=== PATIENT | female | born 1970 | race Caucasian/White ===

== ENCOUNTER 2021-04-04 16:55 | Emergency (ER) | payer MEDICAID ==
[~2021-04-04] VITALS: Ht 162.6 cm; Wt 70.5 kg
[~2021-04-04 16:55] MED LIST: ESCI10TA PO; HYDR-4353 PO; HYDR-4383 PO; LEVO125T8 PO; METH-360 PO; ZOLP10TA PO
[2021-04-04 17:13] VITALS: BP 123/95
== END 2021-04-04 17:33 | disposition home or self-care (01) ==
LOC: ER 16:56
DX: U07.1 COVID-19 (principal); J06.9 Acute upper respiratory infection, unspecified; R63.0 Anorexia; R11.0 Nausea; R50.9 Fever, unspecified; R51.9 Headache, unspecified; R05.9 Cough, unspecified; E78.00 Pure hypercholesterolemia, unspecified; I10 Essential (primary) hypertension; E03.9 Hypothyroidism, unspecified; G89.29 Other chronic pain; F31.9 Bipolar disorder, unspecified; Z87.442 Personal history of urinary calculi; Z90.710 Acquired absence of both cervix and uterus; Z98.890 Other specified postprocedural states; Z88.5 Allergy status to narcotic agent; Z88.1 Allergy status to other antibiotic agents; Z88.8 Allergy status to other drugs, medicaments and biological substances; Z79.899 Other long term (current) drug therapy
CPT/HCPCS: 36415; 99283; U0003; U0005

== ENCOUNTER 2021-05-23 20:36 | Inpatient (IN) | payer MEDICAID ==
[~2021-05-23] VITALS: Ht 162.6 cm; Wt 70.9 kg
[2021-05-23] MEDS ORDERED: ketorolac trometh. 30mg/ml inj. IV ONE (21:30)
[2021-05-23 21:33] LABS: CLARITY,URINE SLIGHTLY CLOUDY (Clear); COLOR,URINE YELLOW (Yellow); GLUCOSE, URINE NEGATIVE (Neg); KETONES,URINE TRACE mg/dl (Neg); LEUKOCYTE ESTERASE ,URINE NEGATIVE (Neg); NITRITES, URINE NEGATIVE (Neg); OCCULT BLOOD,URINE MODERATE (Neg); PROTEIN,URINE TRACE mg/dl (Neg)
[2021-05-23 21:39] LABS: BASOPHILS # (AUTO) 0.1 X10'3 (0-0.2); BASOPHILS % (AUTO) 0.9 % (0-1); EOSINOPHILS # (AUTO) 0.1 X10'3 (0-0.9); EOSINOPHILS % (AUTO) 2.2 % (0-6); HEMATOCRIT 39.3 % (35.0-45.0); HEMOGLOBIN 13.6 g/dl (12.0-16.0); LYMPHOCYTES # (AUTO) 2.1 X10'3 (1.1-4.8); LYMPHOCYTES % (AUTO) 31.6 % (21-51); MEAN CORPUSCULAR HEMOGLOBIN 32.8 PG (27.0-31.0); MEAN CORPUSCULAR HGB CONC 34.5 g/dL (33.0-36.5); MEAN PLATELET VOLUME 7.1 FL (7.4-10.4); MONOCYTES # (AUTO) 0.7 X10'3 (0-0.9); MONOCYTES % (AUTO) 10.6 % (2-12); NEUTROPHILS # (AUTO) 3.7 X10'3 (1.8-7.7); NEUTROPHILS % (AUTO) 54.7 % (42-75); PLATELET COUNT 376 X10'3 (140-440); RED BLOOD COUNT 4.14 X10'6 (4.20-5.60); RED CELL DISTRIBUTION WIDTH 14.7 % (11.5-14.5); WHITE BLOOD COUNT 6.8 X10'3 (4.5-11.0)
[2021-05-23] MEDS ORDERED: diphenhydrAMINE 50 mg/ml inj IV ONE (21:40)
[2021-05-23] MEDS ORDERED: diphenhydrAMINE 50 mg/ml inj ONE (21:44)
[2021-05-23 21:46] LABS: ALANINE AMINOTRANSFERASE 23 U/L (12-78); ALBUMIN 4.5 G/DL (3.4-5.0); ALBUMIN/GLOBULIN RATIO 1.4 (1.1-1.5); ALKALINE PHOSPHATASE 60 IU/L (46-116); ANION GAP 15 (8-16); ASPARTATE AMINO TRANSFERASE 14 U/L (10-37); BILIRUBIN,TOTAL 0.5 MG/DL (0.1-1.0); BLOOD UREA NITROGEN 13 MG/DL (7-18); BUN/CREATININE RATIO 13.3 (6.6-38.0); CHLORIDE 105 MMOL/L (99-107); CREATININE 0.98 MG/DL (0.40-0.90); GLUCOSE 103 MG/DL (70-104); POTASSIUM 3.6 MMOL/L (3.5-5.1); SODIUM 141 MMOL/L (135-145); TOTAL CARBON DIOXIDE 21.4 MMOL/L (24-32); TOTAL PROTEIN 7.8 G/DL (6.4-8.2); eGFR 60 ML/MIN
[2021-05-23 21:55] LABS: UA COLLECTION TYPE CLN CATCH MIDSTREAM
[2021-05-23 21:57] LABS: WBC,URINE 0-4 /HPF (0-4)
[2021-05-23 21:58] LABS: BACTERIA,URINE FEW /HPF (Neg); MUCUS STRANDS FEW /LPF (Neg); SQUAMOUS EPITHELIAL CELL,UR FEW /LPF (FEW)
[2021-05-23] MEDS ORDERED: normal saline 1000ML IV soln IVB ONE (22:00)
[2021-05-23] MEDS ORDERED: ondansetron/PF 4mg/2ml inj IV ONE (22:00)
[2021-05-23] MEDS: HYDROmorphone inj. 0.5 MG/0.5 ML DISP.SYRIN IV PRN (22:50)
[2021-05-24] VITALS (17 sets, daily range): BP systolic 109–153; BP diastolic 70–97
[2021-05-24] MEDS ORDERED: piperacillin/tazo 3.375gm/50ml 50 ML IV ONE (00:50)
[2021-05-24] MEDS ORDERED: HYDROmorphone 1 mg/ml syringe IV ONE (00:50)
[2021-05-24] MEDS: HYDROmorphone inj. 0.5 MG/0.5 ML DISP.SYRIN IV PRN (01:01)
[2021-05-24] MEDS ORDERED: CADD PCA waste documentation MC PRN (01:10)
[2021-05-24] MEDS ORDERED: acetaminophen 325mg tablet PO PRN (01:10)
[2021-05-24] MEDS ORDERED: HYDROmorphone/PF 0.2 MG/ML SYRINGE IV PRN (01:10)
[2021-05-24] MEDS ORDERED: mag hydrox/Alum hydrox/simeth 30ml oral suspension PO PRN (01:10)
[2021-05-24] MEDS ORDERED: magnesium hydroxide 30ml (MOM) UD suspension PO PRN (01:10)
[2021-05-24] MEDS ORDERED: naloxone 0.4 mg/ml inj IV PRN (01:10)
[2021-05-24] MEDS ORDERED: HYDROmorphone inj. 0.5 MG/0.5 ML DISP.SYRIN IV PRN (01:10)
[2021-05-24] MEDS ORDERED: ondansetron/PF 4mg/2ml inj IV PRN ×3 (01:10→19:35)
[2021-05-24] MEDS: normal saline 1000ml 1,000 ML IV SCH ×4 (01:18→21:14)
[2021-05-24] MEDS: HYDROmorph./NS 0.2 mg/ml CADD 50 ML IV SCH ×9 (02:27→19:00)
--- NOTE | 2021-05-24 06:27 | NUR ---
Patient in room [facility] 360. I have received report from AMPARO yLnn and had the opportunity to ask questions and assume patient care.
[2021-05-24] MEDS ORDERED: levoTHYROXINE 100mcg tablet PO SCH ×2 (07:00→12:31)
[2021-05-24] MEDS: piperacillin/tazo 3.375gm/50ml 50 ML IV SCH ×2 (07:43→16:00)
[2021-05-24] MEDS ORDERED: ESCITALOPRAM OXALATE 5 MG TABLET PO SCH (08:00)
[2021-05-24] MEDS: docusate sod 100mg capsule PO SCH ×2 (08:00→20:00)
[2021-05-24 08:35] LABS: APTT 32 SECONDS (22-32)
[2021-05-24] MEDS ORDERED: proCHLORperazine 10 MG/2 ml inj IV PRN (09:35)
[2021-05-24] MEDS ORDERED: LORazepam 2 mg/ml vial IV PRN (10:25)
--- NOTE | 2021-05-24 11:12 | NUR ---
Pt found to have low O2 sats during routine VS. Pt in no distress. When questioned, pt reports she was DC last May to the [place] with O2. [facility] and unable to take her O2. Pt has HX of COPD and noncompliance. Pt placed on 3 lpm nc with sats increasing to 89%. RT paged for tx. Addendum: 05/24/21 at 1119 by Madina Nuno RN Disregard above note, written on wrong patient.
[2021-05-24] MEDS: LORazepam 0.5 MG tablet PO PRN ×2 (12:18→21:48)
[2021-05-24] MEDS ORDERED: LEVO100T PO (12:39)
--- NOTE | 2021-05-24 15:39 | NUR ---
To Sx via bed with Cadd and IV Zosyn, Report called to markus Darby RN
[2021-05-24] MEDS ORDERED: LIDOcaine 1% (10mg/ml)w/preservative inj. 20ml MDV ONE (15:58)
[2021-05-24] MEDS ORDERED: BUPIVAcaine 0.5% inj/PF 30 ML ONE (15:58)
[2021-05-24] MEDS ORDERED: iohexol 300 MG/1 ML 50ml polymer ONE (16:05)
[2021-05-24] MEDS ORDERED: midazolam 1 mg/ML 2ml injection ONE (17:24)
[2021-05-24] MEDS ORDERED: FENTANYL CITRATE/PF 50 MCG/1 ML VIAL ONE (17:24)
[2021-05-24] MEDS ORDERED: ondansetron/PF 4mg/2ml inj ONE (18:07)
[2021-05-24] MEDS ORDERED: neostigmine methylsulfate 1 MG/ML 10ml vial ONE (18:07)
[2021-05-24] MEDS ORDERED: propofol inj 20 ML IV ONE (18:07)
[2021-05-24] MEDS ORDERED: rocuronium 10mg/ml inj IV ONE (18:07)
[2021-05-24] MEDS ORDERED: LIDOcaine 2% (20mg/ml) 5ml vial ONE (18:07)
[2021-05-24] MEDS ORDERED: dexamethasone sod phosphate 4mg/ml inj. ONE (18:07)
[2021-05-24] MEDS ORDERED: glycopyrrolate 0.2mg/ml inj ONE (18:07)
[2021-05-24] MEDS ORDERED: FLO0.4C PO (18:11)
[2021-05-24] MEDS ORDERED: HYDROcodone/acetaminophen 5mg/325mg tablet PO PRN (18:40)
--- NOTE | 2021-05-24 18:51 | NUR ---
Problems reprioritized. Patient report given, questions answered & plan of care reviewed with AMPARO Vang.
[2021-05-24] MEDS ORDERED: CIPR-429 PO (19:23)
--- NOTE | 2021-05-24 19:25 | NUR ---
PT ARRIVED TO RR VIA BED, AWAKE, VSS, MILD PAIN IN ABD, BANDAIDS X 3 TO ABD-CDI, PIV 20G TO R A/C, SCDS ON, PT EAGER TO GO HOME, OK WITH BOTH SURGEONS-WILL CONVEY DESIRES TO NURSING/HOSPITALIST ON FLOOR TO PUSH IN THAT DIRECTION.
[2021-05-24] MEDS ORDERED: ringers solution, lacted 1,000 ML IV SCH (19:35)
[2021-05-24] MEDS ORDERED: fentaNYL/PF 50MCG/1 ML 2ML syringe IV PRN ×2 (19:35)
[2021-05-24] MEDS ORDERED: meperidine/PF 25mg/ml syringe IV PRN ×2 (19:35)
[2021-05-24] MEDS ORDERED: HYDR-3965 PO (19:40)
--- NOTE | 2021-05-24 19:53 | NUR ---
PT C/O NAUSEA-NO EMESIS, GIVEN ZOFRAN IVP, UP TO BSC TO ATTEMPT TO VOID, VSS.
--- NOTE | 2021-05-24 20:26 | NUR ---
PT ABLE TO VOID, BACK TO BED, NAUSEA BETTER, VSS, GIVEN 25MG DEMEROL FOR PAIN-TOLERATING WELL, REPORT CALLED TO OMA AGUILAR ON 3SURGICAL-ALL QUESTIONS ANSWERED, EXPRESSED TO RN PT'S DESIRE TO GO HOME TONIGHT AND SURGEONS APPROVAL TO D/C WELL.
--- NOTE | 2021-05-24 20:35 | NUR ---
PT TAKEN BACK TO ROOM 360A, BED LOW AND LOCKED, HEAD OF SCIENCE IN ROOM TO ACCEPT PT, HOOKED UP TO MONITORS.
--- NOTE | 2021-05-24 21:42 | NUR ---
SPOKE TO DR DRAKE REGARDING PT SP LAP [facility]EWELS [facility]. INFORMED HIM PT WANTED TO BE DISCHARGED BUT AGREED TO STAY IN HOSPITAL OVERNIGHT. INFORMED DR RIVERA OPT HAS A EXCAVATOR OPERATOR BUT NOT IN USE . ASKED DR DRAKE IF EXCAVATOR OPERATOR SHOULD BE RESTARTED . DR DRAKE STATED IF [place]CO IS NOT EFFECTIVE , START EXCAVATOR OPERATOR .
[2021-05-24] MEDS: HYDROcodone/acetaminophen 10/325mg tab PO PRN (22:14)
[2021-05-25] VITALS: BP 139/91
[2021-05-25] MEDS: piperacillin/tazo 3.375gm/50ml 50 ML IV SCH ×2 (00:01→07:56)
[2021-05-25 00:15] VITALS: BP 115/73
[2021-05-25] MEDS: HYDROmorph./NS 0.2 mg/ml CADD 50 ML IV SCH ×5 (01:00→09:00)
--- NOTE | 2021-05-25 01:00 | NUR ---
LATE ENTRY PT RETURNED FROM PACU WITH NO CADD PUMP IN USE. CADD PUMP WAS NOT CONNECTED TO PT PT HAD 18/20 ATTEMPTS PREVIOUSLY 28.8 ML LEFT IN SYRINGE PT USED 3.78 ML PER PUMP . OBSERVED WASTE AND PUMP SETTINGS WITNESSED BY FELICIANO AGUILAR
[2021-05-25] MEDS: HYDROcodone/acetaminophen 10/325mg tab PO PRN ×4 (03:23→11:56)
[2021-05-25 03:41] VITALS: BP 128/87
[2021-05-25] MEDS ORDERED: ringers solution, lacted 1,000 ML IV SCH (05:00)
[2021-05-25 06:23] LABS: BASOPHILS % (AUTO) 0.1 % (0-1); EOSINOPHILS % (AUTO) 0 % (0-6); HEMATOCRIT 34.2 % (35.0-45.0); HEMOGLOBIN 11.7 g/dl (12.0-16.0); LYMPHOCYTES # (AUTO) 0.8 X10'3 (1.1-4.8); MEAN CORPUSCULAR HGB CONC 34.3 g/dL (33.0-36.5); MEAN CORPUSCULAR VOLUME 96.1 FL (78-98); MONOCYTES # (AUTO) 0.6 X10'3 (0-0.9); MONOCYTES % (AUTO) 5.2 % (2-12); NEUTROPHILS # (AUTO) 9.4 X10'3 (1.8-7.7); NEUTROPHILS % (AUTO) 87.7 % (42-75); PLATELET COUNT 302 X10'3 (140-440); RED BLOOD COUNT 3.56 X10'6 (4.20-5.60); RED CELL DISTRIBUTION WIDTH 14.3 % (11.5-14.5); WHITE BLOOD COUNT 10.7 X10'3 (4.5-11.0)
[2021-05-25 06:36] LABS: ALANINE AMINOTRANSFERASE 20 U/L (12-78); ALBUMIN 3.4 G/DL (3.4-5.0); ALBUMIN/GLOBULIN RATIO 1.3 (1.1-1.5); ALKALINE PHOSPHATASE 45 IU/L (46-116); ANION GAP 11 (8-16); ASPARTATE AMINO TRANSFERASE 13 U/L (10-37); BILIRUBIN,TOTAL 0.4 MG/DL (0.1-1.0); BLOOD UREA NITROGEN 6 MG/DL (7-18); BUN/CREATININE RATIO 8.1 (6.6-38.0); CALCIUM 7.7 MG/DL (8.5-10.1); CHLORIDE 109 MMOL/L (99-107); CREATININE 0.74 MG/DL (0.40-0.90); GLUCOSE 114 MG/DL (70-104); POTASSIUM 3.9 MMOL/L (3.5-5.1); SODIUM 142 MMOL/L (135-145); TOTAL CARBON DIOXIDE 21.9 MMOL/L (24-32); TOTAL PROTEIN 6.1 G/DL (6.4-8.2); eGFR 83 ML/MIN
[2021-05-25 07:00] VITALS: BP 122/69
[2021-05-25] MEDS: docusate sod 100mg capsule PO SCH (07:55)
[2021-05-25 11:00] VITALS: BP 137/90
--- NOTE | 2021-05-25 12:30 | NUR ---
Patient dischaged to home, discharge instruction given, good understanding verbalized, hard paper script for [place] given. PIV removed, pressure dressing applied. all belongings packed and took home with.
== END 2021-05-25 12:39 | disposition home or self-care (01) | DRG 234 ==
LOC: ER 20:36 → ED HOLD 05-24 01:09 → SUR 3N 05-24 01:46
PROVIDERS: ADMIT Internal Medicine; ATTEND Family Medicine
PROC: 0TC68ZZ Extirpation of Matter from Right Ureter, Via Natural or Artificial Opening Endoscopic (ICD-10-PCS; 2021-05-24)
PROC: 0T768DZ Dilation of Right Ureter with Intraluminal Device, Via Natural or Artificial Opening Endoscopic (ICD-10-PCS; 2021-05-24)
PROC: BT1D1ZZ Fluoroscopy of Right Kidney, Ureter and Bladder using Low Osmolar Contrast (ICD-10-PCS; 2021-05-24)
PROC: 0DTJ4ZZ Resection of Appendix, Percutaneous Endoscopic Approach (ICD-10-PCS; principal; 2021-05-24 17:26)
PROC: 8E0W4CZ Robotic Assisted Procedure of Trunk Region, Percutaneous Endoscopic Approach (ICD-10-PCS; 2021-05-24 17:26)
DX: K35.30 Acute appendicitis with localized peritonitis, without perforation or gangrene (principal); E03.9 Hypothyroidism, unspecified; Z20.822 Contact with and (suspected) exposure to COVID-19; E78.00 Pure hypercholesterolemia, unspecified; I10 Essential (primary) hypertension; N13.2 Hydronephrosis with renal and ureteral calculous obstruction; F32.A Depression, unspecified; F41.9 Anxiety disorder, unspecified; G89.29 Other chronic pain; M54.9 Dorsalgia, unspecified; Z87.442 Personal history of urinary calculi; Z90.710 Acquired absence of both cervix and uterus; Z98.891 History of uterine scar from previous surgery; Z88.8 Allergy status to other drugs, medicaments and biological substances; Z88.5 Allergy status to narcotic agent; Z79.899 Other long term (current) drug therapy
CPT/HCPCS: 36415; 71045; 74176; 76000; 80053; 81001; 82948; 85025; 85610; 85730; 87081; 87635; 93005; 96365; 96375; 99285; A4215; A4618; C1758; C1769; C2617; C9803; G0378; J0780; J1100; J1170; J1200; J1885; J2175; J2250; J2405; J2543; J2704; J2710; J3010; J3490; J7030; J7120; Q9967; S0020

== ENCOUNTER 2021-06-03 18:45 | Emergency (ER) | payer MEDICAID ==
[~2021-06-03] VITALS: Ht 162.6 cm; Wt 70.0 kg
[~2021-06-03 18:45] MED LIST changes: -ESCI10TA PO; +FLO0.4C PO; +HYDR-3965 PO; -HYDR-4353 PO; -HYDR-4383 PO; +LEVO100T PO; -LEVO125T8 PO; -METH-360 PO; -ZOLP10TA PO
[2021-06-03 19:21] LABS: BASOPHILS # (AUTO) 0.1 X10'3 (0-0.2); BASOPHILS % (AUTO) 0.8 % (0-1); EOSINOPHILS # (AUTO) 0.2 X10'3 (0-0.9); EOSINOPHILS % (AUTO) 3.6 % (0-6); HEMATOCRIT 37.3 % (35.0-45.0); HEMOGLOBIN 12.8 g/dl (12.0-16.0); LYMPHOCYTES # (AUTO) 1.8 X10'3 (1.1-4.8); LYMPHOCYTES % (AUTO) 27.1 % (21-51); MEAN CORPUSCULAR HEMOGLOBIN 33.8 PG (27.0-31.0); MEAN CORPUSCULAR HGB CONC 34.3 g/dL (33.0-36.5); MEAN CORPUSCULAR VOLUME 98.6 FL (78-98); MEAN PLATELET VOLUME 6.5 FL (7.4-10.4); MONOCYTES # (AUTO) 0.6 X10'3 (0-0.9); MONOCYTES % (AUTO) 9.4 % (2-12); NEUTROPHILS # (AUTO) 3.8 X10'3 (1.8-7.7); NEUTROPHILS % (AUTO) 59.1 % (42-75); PLATELET COUNT 368 X10'3 (140-440); RED BLOOD COUNT 3.79 X10'6 (4.20-5.60); RED CELL DISTRIBUTION WIDTH 14.7 % (11.5-14.5); WHITE BLOOD COUNT 6.5 X10'3 (4.5-11.0)
[2021-06-03 19:37] LABS: ALANINE AMINOTRANSFERASE 38 U/L (12-78); ALBUMIN 4.4 G/DL (3.4-5.0); ALBUMIN/GLOBULIN RATIO 1.2 (1.1-1.5); ALKALINE PHOSPHATASE 83 IU/L (46-116); ANION GAP 13 (8-16); ASPARTATE AMINO TRANSFERASE 15 U/L (10-37); BILIRUBIN,TOTAL 0.5 MG/DL (0.1-1.0); BLOOD UREA NITROGEN 20 MG/DL (7-18); CALCIUM 9.3 MG/DL (8.5-10.1); CHLORIDE 103 MMOL/L (99-107); CREATININE 0.91 MG/DL (0.40-0.90); GLUCOSE 103 MG/DL (70-104); LIPASE 124 U/L (73-393); POTASSIUM 3.8 MMOL/L (3.5-5.1); SODIUM 138 MMOL/L (135-145); TOTAL CARBON DIOXIDE 22.3 MMOL/L (24-32); eGFR 65 ML/MIN
[2021-06-03 19:57] LABS: URINE HCG NEGATIVE (NEG)
[2021-06-03 20:39] LABS: COLOR,URINE YELLOW (Yellow); GLUCOSE, URINE NEGATIVE (Neg); KETONES,URINE TRACE mg/dl (Neg); LEUKOCYTE ESTERASE ,URINE TRACE (Neg); NITRITES, URINE NEGATIVE (Neg); OCCULT BLOOD,URINE LARGE (Neg); PH,URINE 5.5 (4.8-8.0); PROTEIN,URINE 100 mg/dl (Neg); UROBILINOGEN,URINE 0.2 E.U/dL (0.2-1.0)
[2021-06-03 20:40] LABS: CLARITY,URINE CLOUDY (Clear); UA COLLECTION TYPE CLN CATCH MIDSTREAM
[2021-06-03 20:41] LABS: BACTERIA,URINE FEW /HPF (Neg); RBC,URINE TNTC /HPF (0-2); SQUAMOUS EPITHELIAL CELL,UR FEW /LPF (FEW); WBC,URINE 0-4 /HPF (0-4)
[2021-06-03] MEDS ORDERED: ondansetron/PF 4mg/2ml inj IV ONE (23:15)
[2021-06-03] MEDS ORDERED: iohexol 300mg/ml 100ml inj. ONE (23:15)
[2021-06-03] MEDS ORDERED: HYDROmorphone 1 mg/ml syringe IV ONE (23:45)
[2021-06-04] MEDS ORDERED: HYDROmorphone 1 mg/ml syringe IV ONE (01:40)
[2021-06-04] MEDS ORDERED: LORA10TA7 PO (02:06)
[2021-06-04] MEDS ORDERED: sulfamethoxazole/trimethoprim DS (800/160mg) tablet PO ONE (02:25)
[2021-06-04] MEDS ORDERED: HYDR-3965 PO (02:27)
[2021-06-04] MEDS ORDERED: SULF1TAB49 PO (02:27)
[2021-06-04 04:13] VITALS: BP 142/93
== END 2021-06-04 04:20 | disposition home or self-care (01) ==
LOC: ER 18:45
DX: N39.0 Urinary tract infection, site not specified (principal); R10.84 Generalized abdominal pain; R31.9 Hematuria, unspecified; R11.0 Nausea; R30.0 Dysuria; E78.00 Pure hypercholesterolemia, unspecified; I10 Essential (primary) hypertension; E03.9 Hypothyroidism, unspecified; G89.29 Other chronic pain; Z87.442 Personal history of urinary calculi; Z98.890 Other specified postprocedural states; Z90.49 Acquired absence of other specified parts of digestive tract; Z98.891 History of uterine scar from previous surgery; Z90.710 Acquired absence of both cervix and uterus; Z88.5 Allergy status to narcotic agent; Z88.8 Allergy status to other drugs, medicaments and biological substances; Z88.1 Allergy status to other antibiotic agents; Z79.899 Other long term (current) drug therapy
CPT/HCPCS: 36415; 74177; 80053; 81001; 81025; 83690; 85025; 87088; 96374; 96375; 96376; 99285; J1170; J2405; Q9967

== ENCOUNTER 2022-07-25 09:30 | Emergency (ER) | payer MEDICAID ==
[~2022-07-25] VITALS: Ht 162.6 cm; Wt 110.0 kg
[~2022-07-25 09:30] MED LIST changes: -FLO0.4C PO; -HYDR-3965 PO; +LORA10TA7 PO
[2022-07-25 09:46] LABS: URINE HCG NEGATIVE (NEG)
[2022-07-25 09:54] LABS: BASOPHILS # (AUTO) 0.1 X10'3 (0-0.2); BASOPHILS % (AUTO) 1.3 % (0-1); EOSINOPHILS # (AUTO) 0.2 X10'3 (0-0.9); HEMATOCRIT 38.8 % (35.0-45.0); HEMOGLOBIN 13.3 g/dl (12.0-16.0); LYMPHOCYTES # (AUTO) 1.2 X10'3 (1.1-4.8); LYMPHOCYTES % (AUTO) 28.7 % (21-51); MEAN CORPUSCULAR HEMOGLOBIN 33.1 PG (27.0-31.0); MEAN CORPUSCULAR HGB CONC 34.4 g/dL (33.0-36.5); MEAN CORPUSCULAR VOLUME 96.3 FL (78-98); MEAN PLATELET VOLUME 7.3 FL (7.4-10.4); MONOCYTES # (AUTO) 0.4 X10'3 (0-0.9); MONOCYTES % (AUTO) 9.5 % (2-12); NEUTROPHILS # (AUTO) 2.2 X10'3 (1.8-7.7); NEUTROPHILS % (AUTO) 54.5 % (42-75); PLATELET COUNT 268 X10'3 (140-440); RED BLOOD COUNT 4.03 X10'6 (4.20-5.60); RED CELL DISTRIBUTION WIDTH 13.8 % (11.5-14.5); WHITE BLOOD COUNT 4.1 X10'3 (4.5-11.0)
[2022-07-25] MEDS ORDERED: ondansetron 4mg rapidly disintigrating tab PO ONE (10:05)
[2022-07-25] MEDS ORDERED: normal saline 1000ml 1,000 ML IV ONE (10:05)
[2022-07-25] MEDS ORDERED: HYDROcodone/acetaminophen 10/325mg tab PO ONE (10:05)
[2022-07-25 10:09] LABS: CLARITY,URINE CLOUDY (Clear); COLOR,URINE YELLOW (Yellow); GLUCOSE, URINE NEGATIVE (Neg); KETONES,URINE NEGATIVE (Neg); LEUKOCYTE ESTERASE ,URINE NEGATIVE (Neg); NITRITES, URINE NEGATIVE (Neg); OCCULT BLOOD,URINE NEGATIVE (Neg); PROTEIN,URINE NEGATIVE (Neg); UROBILINOGEN,URINE 0.2 E.U/dL (0.2-1.0)
[2022-07-25 10:14] LABS: ALANINE AMINOTRANSFERASE 18 U/L (12-78); ALBUMIN 3.8 G/DL (3.4-5.0); ALBUMIN/GLOBULIN RATIO 1.3 (1.1-1.5); ALKALINE PHOSPHATASE 85 IU/L (46-116); ASPARTATE AMINO TRANSFERASE 9 U/L (10-37); BILIRUBIN,TOTAL 0.2 MG/DL (0.1-1.0); BLOOD UREA NITROGEN 17 MG/DL (7-18); BUN/CREATININE RATIO 18.3 (10.0-20.0); CALCIUM 8.7 MG/DL (8.5-10.1); CHLORIDE 107 MMOL/L (99-107); CREATININE 0.93 MG/DL (0.40-0.90); GLUCOSE 126 MG/DL (70-104); LIPASE 91 U/L (73-393); POTASSIUM 3.6 MMOL/L (3.5-5.1); TOTAL CARBON DIOXIDE 24.3 MMOL/L (24-32); TOTAL PROTEIN 6.7 G/DL (6.4-8.2); eGFR 63 ML/MIN
[2022-07-25] MEDS ORDERED: ibuprofen tablet 400 MG TABLET PO ONE (10:20)
[2022-07-25 10:32] LABS: UA COLLECTION TYPE CLN CATCH MIDSTREAM
[2022-07-25 10:33] LABS: BACTERIA,URINE FEW /HPF (Neg); HYALINE CASTS 0-3 /LPF (NEGATIVE); MUCUS STRANDS MODERATE /LPF (Neg); RBC,URINE 0-2 /HPF (0-2); SQUAMOUS EPITHELIAL CELL,UR MANY /LPF (FEW); TRANSITIONAL EPI CELLS,URINE FEW /HPF; WBC,URINE 0-4 /HPF (0-4)
[2022-07-25 10:37] LABS: ANION GAP 8 (8-16); SODIUM 139 MMOL/L (135-145)
[2022-07-25] MEDS ORDERED: OXYC-145 PO (11:26)
[2022-07-25] MEDS ORDERED: ONDA4TAB12 PO (11:26)
[2022-07-25 11:43] VITALS: BP 118/80
== END 2022-07-25 11:46 | disposition home or self-care (01) ==
LOC: ER 09:31
DX: N20.0 Calculus of kidney (principal); E78.00 Pure hypercholesterolemia, unspecified; I10 Essential (primary) hypertension; E03.9 Hypothyroidism, unspecified; G89.29 Other chronic pain; F31.9 Bipolar disorder, unspecified; Z90.49 Acquired absence of other specified parts of digestive tract; Z90.710 Acquired absence of both cervix and uterus; Z98.890 Other specified postprocedural states; Z88.5 Allergy status to narcotic agent; Z88.8 Allergy status to other drugs, medicaments and biological substances; Z79.899 Other long term (current) drug therapy
CPT/HCPCS: 36415; 76770; 80053; 81001; 81025; 83690; 85025; 96360; 99284; J7030

== ENCOUNTER 2022-07-31 05:37 | Emergency (ER) | payer MEDICAID ==
[~2022-07-31] VITALS: Ht 162.6 cm; Wt 79.5 kg
[~2022-07-31 05:37] MED LIST changes: +ONDA4TAB12 PO; +OXYC-145 PO
[2022-07-31 06:03] LABS: URINE HCG NEGATIVE (NEG)
[2022-07-31 06:06] LABS: CLARITY,URINE SLIGHTLY CLOUDY (Clear); COLOR,URINE YELLOW (Yellow); GLUCOSE, URINE NEGATIVE (Neg); KETONES,URINE NEGATIVE (Neg); LEUKOCYTE ESTERASE ,URINE NEGATIVE (Neg); NITRITES, URINE NEGATIVE (Neg); OCCULT BLOOD,URINE NEGATIVE (Neg); PROTEIN,URINE NEGATIVE (Neg); UROBILINOGEN,URINE 0.2 E.U/dL (0.2-1.0)
[2022-07-31 06:11] LABS: UA COLLECTION TYPE CLN CATCH MIDSTREAM
[2022-07-31 06:12] LABS: BACTERIA,URINE FEW /HPF (Neg); MUCUS STRANDS FEW /LPF (Neg); RBC,URINE NONE SEEN /HPF (0-2); SQUAMOUS EPITHELIAL CELL,UR MANY /LPF (FEW); WBC,URINE 0-4 /HPF (0-4)
[2022-07-31 06:28] LABS: ALANINE AMINOTRANSFERASE 31 U/L (12-78); ALBUMIN 4.5 G/DL (3.4-5.0); ALBUMIN/GLOBULIN RATIO 1.4 (1.1-1.5); ALKALINE PHOSPHATASE 80 IU/L (46-116); ANION GAP 5 (8-16); ASPARTATE AMINO TRANSFERASE 13 U/L (10-37); BILIRUBIN,TOTAL 0.3 MG/DL (0.1-1.0); BLOOD UREA NITROGEN 13 MG/DL (7-18); BUN/CREATININE RATIO 15.9 (10.0-20.0); CALCIUM 9.6 MG/DL (8.5-10.1); CHLORIDE 103 MMOL/L (99-107); CREATININE 0.82 MG/DL (0.40-0.90); GLUCOSE 108 MG/DL (70-104); LIPASE 67 U/L (73-393); POTASSIUM 3.9 MMOL/L (3.5-5.1); SODIUM 137 MMOL/L (135-145); TOTAL CARBON DIOXIDE 28.6 MMOL/L (24-32); TOTAL PROTEIN 7.8 G/DL (6.4-8.2); eGFR 73 ML/MIN
[2022-07-31 06:36] LABS: BASOPHILS % (AUTO) 0.9 % (0-1); EOSINOPHILS # (AUTO) 0.2 X10'3 (0-0.9); EOSINOPHILS % (AUTO) 3.5 % (0-6); HEMATOCRIT 44.3 % (35.0-45.0); HEMOGLOBIN 14.8 g/dl (12.0-16.0); LYMPHOCYTES # (AUTO) 1.7 X10'3 (1.1-4.8); LYMPHOCYTES % (AUTO) 32.5 % (21-51); MEAN CORPUSCULAR HEMOGLOBIN 32.5 PG (27.0-31.0); MEAN CORPUSCULAR HGB CONC 33.5 g/dL (33.0-36.5); MEAN CORPUSCULAR VOLUME 97.1 FL (78-98); MEAN PLATELET VOLUME 7.3 FL (7.4-10.4); MONOCYTES # (AUTO) 0.4 X10'3 (0-0.9); NEUTROPHILS # (AUTO) 2.8 X10'3 (1.8-7.7); NEUTROPHILS % (AUTO) 55.1 % (42-75); PLATELET COUNT 284 X10'3 (140-440); RED BLOOD COUNT 4.56 X10'6 (4.20-5.60); RED CELL DISTRIBUTION WIDTH 13.4 % (11.5-14.5); WHITE BLOOD COUNT 5.2 X10'3 (4.5-11.0)
--- NOTE | 2022-07-31 07:20 | NUR ---
Patient refusing CT scan of abdomen/pelvis. Patient was crying and states "If they cannot find anything in the scan, I would rather just go home and see my urologist!" I have told the patient that we need to do the CT scan so we can find out whats going on. I gave her a few minutes to think about it. When I came back she still saying she does not want the CT scan done and would like to follow up tomorrow with her urologist or come back to ER if her symptoms worsen. She was also requesting for a work note until sunday this week. I communicated this concern to Dr. Choi.
[2022-07-31] MEDS ORDERED: HYDR-3965 PO (07:23)
[2022-07-31 07:48] VITALS: BP 138/87
== END 2022-07-31 07:53 | disposition home or self-care (01) ==
LOC: ER 05:38
DX: R10.9 Unspecified abdominal pain (principal); E78.00 Pure hypercholesterolemia, unspecified; I10 Essential (primary) hypertension; E03.9 Hypothyroidism, unspecified; Z88.5 Allergy status to narcotic agent; Z88.1 Allergy status to other antibiotic agents; Z90.710 Acquired absence of both cervix and uterus
CPT/HCPCS: 36415; 80053; 81001; 81025; 83690; 85025; 99283

== ENCOUNTER 2022-11-01 05:33 | Emergency (ER) | payer MEDICAID ==
[~2022-11-01] VITALS: Ht 162.6 cm; Wt 72.0 kg
[2022-11-01 07:06] LABS: BASOPHILS % (AUTO) 0.6 % (0-1); EOSINOPHILS # (AUTO) 0.2 X10'3 (0-0.9); EOSINOPHILS % (AUTO) 2.2 % (0-6); HEMATOCRIT 41.2 % (35.0-45.0); HEMOGLOBIN 14.3 g/dl (12.0-16.0); LYMPHOCYTES # (AUTO) 1.4 X10'3 (1.1-4.8); LYMPHOCYTES % (AUTO) 17.7 % (21-51); MEAN CORPUSCULAR HEMOGLOBIN 34.3 PG (27.0-31.0); MEAN CORPUSCULAR HGB CONC 34.7 g/dL (33.0-36.5); MEAN CORPUSCULAR VOLUME 98.8 FL (78-98); MEAN PLATELET VOLUME 7.1 FL (7.4-10.4); MONOCYTES # (AUTO) 0.7 X10'3 (0-0.9); MONOCYTES % (AUTO) 8.8 % (2-12); NEUTROPHILS # (AUTO) 5.4 X10'3 (1.8-7.7); NEUTROPHILS % (AUTO) 70.7 % (42-75); PLATELET COUNT 324 X10'3 (140-440); RED BLOOD COUNT 4.17 X10'6 (4.20-5.60); RED CELL DISTRIBUTION WIDTH 13.4 % (11.5-14.5); WHITE BLOOD COUNT 7.7 X10'3 (4.5-11.0)
[2022-11-01 07:24] LABS: ALANINE AMINOTRANSFERASE 22 U/L (12-78); ALBUMIN 4.1 G/DL (3.4-5.0); ALBUMIN/GLOBULIN RATIO 1.2 (1.1-1.5); ALKALINE PHOSPHATASE 91 IU/L (46-116); ANION GAP 9 (8-16); ASPARTATE AMINO TRANSFERASE 10 U/L (10-37); BILIRUBIN,TOTAL 0.5 MG/DL (0.1-1.0); BLOOD UREA NITROGEN 20 MG/DL (7-18); BUN/CREATININE RATIO 21.7 (10.0-20.0); CALCIUM 9.9 MG/DL (8.5-10.1); CHLORIDE 105 MMOL/L (99-107); CREATININE 0.92 MG/DL (0.40-0.90); GLUCOSE 101 MG/DL (70-104); LIPASE 84 U/L (73-393); POTASSIUM 3.8 MMOL/L (3.5-5.1); SODIUM 141 MMOL/L (135-145); TOTAL CARBON DIOXIDE 27.3 MMOL/L (24-32); TOTAL PROTEIN 7.5 G/DL (6.4-8.2); eCRCL 61 ML/MIN; eGFR 64 ML/MIN
[2022-11-01 07:57] LABS: URINE HCG NEGATIVE (NEG)
[2022-11-01 08:01] LABS: BILIRUBIN,URINE NEGATIVE (Neg); CLARITY,URINE CLEAR (Clear); COLOR,URINE YELLOW (Yellow); GLUCOSE, URINE NEGATIVE (Neg); KETONES,URINE NEGATIVE (Neg); LEUKOCYTE ESTERASE ,URINE NEGATIVE (Neg); NITRITES, URINE NEGATIVE (Neg); OCCULT BLOOD,URINE NEGATIVE (Neg); PH,URINE 5.5 (4.8-8.0); PROTEIN,URINE NEGATIVE (Neg); UROBILINOGEN,URINE 0.2 E.U/dL (0.2-1.0)
[2022-11-01 08:12] LABS: UA COLLECTION TYPE CLN CATCH MIDSTREAM
[2022-11-01] MEDS ORDERED: normal saline 1000ML IV soln IVB ONE (08:20)
[2022-11-01] MEDS ORDERED: meperidine/PF 50mg/ml syringe IV ONE (08:30)
[2022-11-01] MEDS ORDERED: CYCL-1 PO (09:55)
[2022-11-01] MEDS ORDERED: cyclobenzaprine 10mg tablet PO ONE (09:55)
[2022-11-01] MEDS ORDERED: ONDA4TAB12 PO (09:55)
[2022-11-01 10:06] VITALS: BP 156/96; PULSE 49; RESP 18; TEMP 97.7; O2SAT 100
== END 2022-11-01 10:23 | disposition home or self-care (01) ==
LOC: ER 05:34
DX: R10.9 Unspecified abdominal pain (principal); E78.00 Pure hypercholesterolemia, unspecified; I10 Essential (primary) hypertension; E03.9 Hypothyroidism, unspecified; G89.29 Other chronic pain; F31.9 Bipolar disorder, unspecified; Z87.442 Personal history of urinary calculi; Z90.49 Acquired absence of other specified parts of digestive tract; Z98.890 Other specified postprocedural states; Z90.710 Acquired absence of both cervix and uterus; Z88.5 Allergy status to narcotic agent; Z88.8 Allergy status to other drugs, medicaments and biological substances; Z79.899 Other long term (current) drug therapy; Z88.1 Allergy status to other antibiotic agents
CPT/HCPCS: 36415; 74176; 80053; 81003; 81025; 83690; 85025; 96361; 96374; 99285; J2175; J7030

== ENCOUNTER 2022-11-13 02:19 | Inpatient (IN) | payer MEDICAID ==
[~2022-11-13] VITALS: Ht 162.6 cm; Wt 72.7 kg
[~2022-11-13 02:19] MED LIST changes: +CYCL-1 PO
[2022-11-13 04:11] LABS: URINE HCG NEGATIVE (NEG)
[2022-11-13 04:21] LABS: BILIRUBIN,URINE SMALL (Neg); CLARITY,URINE CLOUDY (Clear); COLOR,URINE AMBER (Yellow); GLUCOSE, URINE NEGATIVE (Neg); KETONES,URINE NEGATIVE (Neg); LEUKOCYTE ESTERASE ,URINE NEGATIVE (Neg); NITRITES, URINE NEGATIVE (Neg); OCCULT BLOOD,URINE NEGATIVE (Neg); PH,URINE 8.5 (4.8-8.0); PROTEIN,URINE 30 mg/dl (Neg)
[2022-11-13 04:25] LABS: UA COLLECTION TYPE CLN CATCH MIDSTREAM
[2022-11-13 04:26] LABS: SQUAMOUS EPITHELIAL CELL,UR MANY /LPF (FEW)
[2022-11-13 04:28] LABS: BACTERIA,URINE 3+ /HPF (Neg); RBC,URINE NONE SEEN /HPF (0-2); WBC,URINE 0-4 /HPF (0-4)
[2022-11-13 04:29] LABS: CAL OXALATE CRYSTALS 1+ /HPF (NEGATIVE)
[2022-11-13] MEDS ORDERED: morphine 2 MG/ML inj. syringe IV ONE (05:30)
[2022-11-13] MEDS ORDERED: ondansetron/PF 4mg/2ml inj IV ONE ×2 (05:30→22:55)
[2022-11-13 06:35] LABS: BASOPHILS % (AUTO) 0.2 % (0-1); EOSINOPHILS % (AUTO) 0.2 % (0-6); HEMOGLOBIN 14.6 g/dl (12.0-16.0); LYMPHOCYTES # (AUTO) 0.9 X10'3 (1.1-4.8); LYMPHOCYTES % (AUTO) 5.3 % (21-51); MEAN CORPUSCULAR HEMOGLOBIN 33.5 PG (27.0-31.0); MEAN CORPUSCULAR HGB CONC 34.1 g/dL (33.0-36.5); MEAN CORPUSCULAR VOLUME 98.3 FL (78-98); MEAN PLATELET VOLUME 7.8 FL (7.4-10.4); MONOCYTES # (AUTO) 1.1 X10'3 (0-0.9); MONOCYTES % (AUTO) 6.8 % (2-12); NEUTROPHILS # (AUTO) 14.3 X10'3 (1.8-7.7); NEUTROPHILS % (AUTO) 87.5 % (42-75); PLATELET COUNT 351 X10'3 (140-440); RED BLOOD COUNT 4.37 X10'6 (4.20-5.60); WHITE BLOOD COUNT 16.3 X10'3 (4.5-11.0)
[2022-11-13 06:55] LABS: ALANINE AMINOTRANSFERASE 17 U/L (12-78); ALBUMIN 4.3 G/DL (3.4-5.0); ALBUMIN/GLOBULIN RATIO 1.2 (1.1-1.5); ALKALINE PHOSPHATASE 94 IU/L (46-116); ANION GAP 16 (8-16); ASPARTATE AMINO TRANSFERASE 13 U/L (10-37); BILIRUBIN,TOTAL 0.5 MG/DL (0.1-1.0); BLOOD UREA NITROGEN 21 MG/DL (7-18); BUN/CREATININE RATIO 23.1 (10.0-20.0); CALCIUM 9.2 MG/DL (8.5-10.1); CHLORIDE 106 MMOL/L (99-107); CREATININE 0.91 MG/DL (0.40-0.90); GLUCOSE 131 MG/DL (70-104); POTASSIUM 3.6 MMOL/L (3.5-5.1); SODIUM 139 MMOL/L (135-145); TOTAL CARBON DIOXIDE 17.5 MMOL/L (24-32); TOTAL PROTEIN 7.8 G/DL (6.4-8.2); eCRCL 62 ML/MIN; eGFR 65 ML/MIN
[2022-11-13] MEDS ORDERED: LORazepam 2 mg/ml vial IV ONE (06:55)
[2022-11-13] MEDS: acetaminophen 1,000mg/100ml IV 100 ML IV SCH ×3 (06:57→21:19)
[2022-11-13] MEDS ORDERED: normal saline 1000ML IV soln IVB ONE (07:55)
[2022-11-13] MEDS ORDERED: morphine 4 MG/ML inj SYRINge IV ONE (07:55)
[2022-11-13] MEDS ORDERED: piperacillin/tazo 3.375gm/50ml 50 ML IV ONE (09:40)
[2022-11-13] MEDS ORDERED: acetaminophen 325mg tablet PO PRN (11:35)
[2022-11-13] MEDS ORDERED: HYDROcodone/acetaminophen 5mg/325mg tablet PO PRN (11:35)
[2022-11-13] MEDS ORDERED: magnesium Cl slow-release 64mg tablet PO PRN (11:35)
[2022-11-13] MEDS ORDERED: metroNIDAZOLE-Flagyl 500mg/NS 100 ML IV SCH (11:35)
[2022-11-13] MEDS ORDERED: potassium Cl 40MEQ/1/2NS 520ml 520 ML IV PRN (11:35)
[2022-11-13] MEDS ORDERED: magnesium hydroxide 30ml (MOM) UD suspension PO PRN (11:35)
[2022-11-13] MEDS ORDERED: potassium Cl 20 mEq SR tablet PO PRN ×2 (11:35)
[2022-11-13] MEDS ORDERED: magnesium 4gm in 100ml NS 100 ML IV PRN (11:35)
[2022-11-13] MEDS ORDERED: magnesium 2GM in 50ml NS 50 ML IV PRN (11:35)
[2022-11-13] MEDS ORDERED: mag hydrox/Alum hydrox/simeth 30ml oral suspension PO PRN (11:35)
[2022-11-13] MEDS: normal saline 1000ml 1,000 ML IV SCH ×2 (12:00→21:45)
--- NOTE | 2022-11-13 12:05 | NUR ---
Hospitalist Dr. Hemant woods, pt with uncontrolled pain.
[2022-11-13] MEDS: HYDROcodone/acetaminophen 10/325mg tab PO PRN (12:13)
[2022-11-13] MEDS ORDERED: HYDROmorphone inj. 0.5 MG/0.5 ML DISP.SYRIN IV PRN (12:35)
--- NOTE | 2022-11-13 12:35 | NUR ---
Hospitalist Dr. Marcos paged 2nd time, pt with uncontrolled pain.
[2022-11-13] MEDS: HYDROmorphone 1 mg/ml syringe IV PRN ×2 (12:57→22:50)
[2022-11-13 13:06] LABS: MAGNESIUM 2.2 MG/DL (1.5-2.4); PHOSPHORUS 2.8 MG/DL (2.3-4.5)
[2022-11-13 13:14] LABS: HEMOGLOBIN A1C 5.3 % (4.5-6.2)
[2022-11-13] MEDS ORDERED: ONDA4TAB12 PO (13:18)
[2022-11-13] MEDS ORDERED: LEVO200T PO (13:18)
--- NOTE | 2022-11-13 13:28 | NUR ---
pharmacy called for Cipro, bag to be mixed and will send angela to pick up worker.
[2022-11-13 13:34] LABS: THYROID STIMULATING HORMONE 57.19 ulU/ml (0.34-4.50)
[2022-11-13] MEDS: ciprofloxacin lact 400MG/200ML 200 ML IV SCH ×2 (13:45→21:24)
[2022-11-13 15:55] LABS: FREE T4 (FREE THYROXINE) 0.83 NG/DL (0.73-1.40)
--- NOTE | 2022-11-13 18:38 | NUR ---
Report given to RN Lety, pt to go to room 4196R
--- NOTE | 2022-11-13 18:40 | NUR ---
rECEIVED REPORT FROM Asif eR nURSE. pATIENT TO FOLLOW
[2022-11-13] MEDS: ondansetron/PF 4mg/2ml inj IV PRN (18:58)
--- NOTE | 2022-11-13 19:00 | NUR ---
Patient arrived to floor from ER via gurney. A&O, and transferred over to bed with SbA.
[2022-11-13 19:10] VITALS: BP 133/98; PULSE 67; RESP 18; TEMP 97.4; O2SAT 97
[2022-11-13 19:30] VITALS: RESP 18; O2SAT 97
[2022-11-13] MEDS: K and/or MAG REPLACEMENT MC SCH (20:00)
[2022-11-13] MEDS: metroNIDAZOLE-Flagyl 500mg/NS 100 ML IV SCH (21:24)
[2022-11-13 22:00] VITALS: BP 151/94; PULSE 68; RESP 16; TEMP 97.4; O2SAT 98
[2022-11-13] MEDS ORDERED: diphenhydrAMINE 50 mg/ml inj IV PRN (22:55)
[2022-11-13] MEDS: diatr meglu/diatrizoate 30ml oral sol.-(3 dose) bottle PO SCH (23:14)
[2022-11-14] VITALS (8 sets, daily range): BP systolic 136–168; BP diastolic 87–98; PULSE 57–64; RESP 15–16; TEMP 97.7–98.1; O2SAT 97–98
[2022-11-14 01:18] LABS: BILIRUBIN,URINE NEGATIVE (Neg); CLARITY,URINE SLIGHTLY CLOUDY (Clear); COLOR,URINE YELLOW (Yellow); GLUCOSE, URINE NEGATIVE (Neg); KETONES,URINE NEGATIVE (Neg); LEUKOCYTE ESTERASE ,URINE NEGATIVE (Neg); NITRITES, URINE NEGATIVE (Neg); OCCULT BLOOD,URINE NEGATIVE (Neg); PH,URINE 5.5 (4.8-8.0); PROTEIN,URINE NEGATIVE (Neg); UROBILINOGEN,URINE 0.2 E.U/dL (0.2-1.0)
[2022-11-14 01:24] LABS: SQUAMOUS EPITHELIAL CELL,UR MANY /LPF (FEW); UA COLLECTION TYPE OTHER
[2022-11-14 01:26] LABS: RBC,URINE 0-2 /HPF (0-2); WBC,URINE 0-4 /HPF (0-4)
[2022-11-14 01:27] LABS: BACTERIA,URINE FEW /HPF (Neg); TRANSITIONAL EPI CELLS,URINE FEW /HPF
[2022-11-14] MEDS: acetaminophen 1,000mg/100ml IV 100 ML IV SCH (01:43)
[2022-11-14] MEDS: HYDROmorphone 1 mg/ml syringe IV PRN ×3 (02:59→20:29)
[2022-11-14] MEDS: metroNIDAZOLE-Flagyl 500mg/NS 100 ML IV SCH ×3 (04:41→20:09)
--- NOTE | 2022-11-14 06:00 | NUR ---
Patient in room [facility]TH[facility] 4013. I have received report from Virginie AGUILAR and had the opportunity to ask questions and assume patient care.
--- NOTE | 2022-11-14 06:10 | NUR ---
Problems reprioritized. Patient report given, questions answered & plan of care reviewed with Anh BOGGS.
[2022-11-14 06:43] LABS: BASOPHILS % (AUTO) 0.1 % (0-1); EOSINOPHILS % (AUTO) 0.4 % (0-6); HEMATOCRIT 40.6 % (35.0-45.0); HEMOGLOBIN 13.9 g/dl (12.0-16.0); LYMPHOCYTES # (AUTO) 1.3 X10'3 (1.1-4.8); LYMPHOCYTES % (AUTO) 12.6 % (21-51); MEAN CORPUSCULAR HEMOGLOBIN 34.1 PG (27.0-31.0); MEAN CORPUSCULAR HGB CONC 34.1 g/dL (33.0-36.5); MEAN CORPUSCULAR VOLUME 100.1 FL (78-98); MEAN PLATELET VOLUME 7.5 FL (7.4-10.4); MONOCYTES # (AUTO) 0.9 X10'3 (0-0.9); MONOCYTES % (AUTO) 8.1 % (2-12); NEUTROPHILS # (AUTO) 8.4 X10'3 (1.8-7.7); NEUTROPHILS % (AUTO) 78.8 % (42-75); PLATELET COUNT 285 X10'3 (140-440); RED BLOOD COUNT 4.06 X10'6 (4.20-5.60); WHITE BLOOD COUNT 10.6 X10'3 (4.5-11.0)
[2022-11-14 07:12] LABS: ALANINE AMINOTRANSFERASE 9 U/L (12-78); ALBUMIN 3.8 G/DL (3.4-5.0); ALBUMIN/GLOBULIN RATIO 1.2 (1.1-1.5); ALKALINE PHOSPHATASE 91 IU/L (46-116); ANION GAP 10 (8-16); ASPARTATE AMINO TRANSFERASE 11 U/L (10-37); BILIRUBIN,TOTAL 0.5 MG/DL (0.1-1.0); BLOOD UREA NITROGEN 10 MG/DL (7-18); BUN/CREATININE RATIO 14.3 (10.0-20.0); CALCIUM 8.1 MG/DL (8.5-10.1); CHLORIDE 107 MMOL/L (99-107); GLUCOSE 120 MG/DL (70-104); MAGNESIUM 2.2 MG/DL (1.5-2.4); PHOSPHORUS 2.6 MG/DL (2.3-4.5); POTASSIUM 3.5 MMOL/L (3.5-5.1); SODIUM 138 MMOL/L (135-145); TOTAL CARBON DIOXIDE 20.9 MMOL/L (24-32); TOTAL PROTEIN 7.1 G/DL (6.4-8.2); eCRCL 80 ML/MIN; eGFR 88 ML/MIN
[2022-11-14] MEDS ORDERED: lisinopril 10 MG tablet PO ONE (07:20)
[2022-11-14] MEDS: levoTHYROXINE 100mcg tablet PO SCH (07:28)
[2022-11-14] MEDS: enoxaparin 40mg/0.4ml syringe SUBCUT SCH (07:30)
[2022-11-14] MEDS: diatr meglu/diatrizoate 30ml oral sol.-(3 dose) bottle PO SCH ×2 (07:30→10:36)
[2022-11-14] MEDS: HYDROcodone/acetaminophen 10/325mg tab PO PRN (07:43)
[2022-11-14] MEDS: ondansetron/PF 4mg/2ml inj IV PRN ×2 (07:44→19:41)
[2022-11-14] MEDS: ciprofloxacin lact 400MG/200ML 200 ML IV SCH ×2 (07:46→21:39)
[2022-11-14] MEDS: K and/or MAG REPLACEMENT MC SCH ×2 (08:00→20:16)
[2022-11-14] MEDS ORDERED: iohexol 300mg/ml 100ml inj. ONE (09:53)
[2022-11-14 10:10] LABS: CHOL/HDL RATIO 3.7 (0.00-4.99); CHOLESTEROL 273 MG/DL (0-200); HDL CHOLESTEROL 74 MG/DL (35-60); LDL CHOLESTEROL 146 MG/DL (50-100); LIPASE < 50 U/L (73-393); TRIGLYCERIDES 198 MG/DL (20-135)
[2022-11-14] MEDS: normal saline 1000ml 1,000 ML IV SCH ×2 (10:33→19:00)
--- NOTE | 2022-11-14 13:54 | NUR ---
Message: [id number] Radhika Atwood- Patient CT results are in chart. Pls advise? Do you want to put patient on a diet? Pls advise? ISABEL Sahu [id number]
--- NOTE | 2022-11-14 18:00 | NUR ---
I have reviewed and agree with interventions, assessments, and documentation by Adelina Evans LVN.
--- NOTE | 2022-11-14 18:30 | NUR ---
Patient in room [facility]THO 4013. I have received report from Anh BOGGS and had the opportunity to ask questions and assume patient care.
--- NOTE | 2022-11-14 18:34 | NUR ---
Problems reprioritized. Patient report given, questions answered & plan of care reviewed with Virginie AGUILAR.
[2022-11-14] MEDS: docusate sod 100mg capsule PO SCH (20:06)
--- NOTE | 2022-11-14 20:10 | NUR ---
I have reviewed with skilled nursing facilities professional assessment and find that I agree with findings.
[2022-11-14] MEDS ORDERED: polyethylene glycol 3350 17gm powd pack PO SCH (21:00)
[2022-11-15] MEDS: HYDROcodone/acetaminophen 10/325mg tab PO PRN ×2 (00:17→08:00)
[2022-11-15] MEDS: HYDROmorphone 1 mg/ml syringe IV PRN (02:57)
[2022-11-15] MEDS: normal saline 1000ml 1,000 ML IV SCH (03:01)
[2022-11-15] MEDS: metroNIDAZOLE-Flagyl 500mg/NS 100 ML IV SCH ×2 (05:03→12:22)
[2022-11-15 06:00] VITALS: BP 157/90; PULSE 52; RESP 15; TEMP 97.8; O2SAT 97
--- NOTE | 2022-11-15 06:25 | NUR ---
Patient in room [facility]TH[facility] 4013. I have received report from Virginie AGUILAR and had the opportunity to ask questions and assume patient care.
--- NOTE | 2022-11-15 06:30 | NUR ---
Problems reprioritized. Patient report given, questions answered & plan of care reviewed with Anh BOGGS.
[2022-11-15 06:39] LABS: BASOPHILS % (AUTO) 0.3 % (0-1); EOSINOPHILS # (AUTO) 0.1 X10'3 (0-0.9); HEMATOCRIT 39.1 % (35.0-45.0); HEMOGLOBIN 12.8 g/dl (12.0-16.0); LYMPHOCYTES % (AUTO) 12.2 % (21-51); MEAN CORPUSCULAR HEMOGLOBIN 33.9 PG (27.0-31.0); MEAN CORPUSCULAR HGB CONC 32.8 g/dL (33.0-36.5); MEAN CORPUSCULAR VOLUME 103.1 FL (78-98); MEAN PLATELET VOLUME 7.3 FL (7.4-10.4); MONOCYTES # (AUTO) 0.7 X10'3 (0-0.9); MONOCYTES % (AUTO) 8.2 % (2-12); NEUTROPHILS # (AUTO) 6.5 X10'3 (1.8-7.7); NEUTROPHILS % (AUTO) 78.3 % (42-75); PLATELET COUNT 259 X10'3 (140-440); RED BLOOD COUNT 3.79 X10'6 (4.20-5.60); RED CELL DISTRIBUTION WIDTH 13.9 % (11.5-14.5); WHITE BLOOD COUNT 8.3 X10'3 (4.5-11.0)
[2022-11-15 06:50] LABS: ALANINE AMINOTRANSFERASE 15 U/L (12-78); ALBUMIN 3.1 G/DL (3.4-5.0); ALBUMIN/GLOBULIN RATIO 1.1 (1.1-1.5); ALKALINE PHOSPHATASE 72 IU/L (46-116); ANION GAP 9 (8-16); ASPARTATE AMINO TRANSFERASE 8 U/L (10-37); BILIRUBIN,TOTAL 0.4 MG/DL (0.1-1.0); BLOOD UREA NITROGEN 5 MG/DL (7-18); BUN/CREATININE RATIO 8.8 (10.0-20.0); CALCIUM 8.3 MG/DL (8.5-10.1); CHLORIDE 107 MMOL/L (99-107); CREATININE 0.57 MG/DL (0.40-0.90); GLUCOSE 110 MG/DL (70-104); MAGNESIUM 2.2 MG/DL (1.5-2.4); PHOSPHORUS 2.6 MG/DL (2.3-4.5); POTASSIUM 3.5 MMOL/L (3.5-5.1); SODIUM 136 MMOL/L (135-145); TOTAL CARBON DIOXIDE 20.1 MMOL/L (24-32); eCRCL 99 ML/MIN; eGFR > 90 ML/MIN
[2022-11-15] MEDS ORDERED: cyanocobalamin 1,000 mcg/ml inj IM ONE (07:05)
[2022-11-15] MEDS ORDERED: folic acid 1mg tablet PO SCH (07:05)
[2022-11-15] MEDS: docusate sod 100mg capsule PO SCH (07:48)
[2022-11-15] MEDS: levoTHYROXINE 100mcg tablet PO SCH (07:48)
[2022-11-15] MEDS: enoxaparin 40mg/0.4ml syringe SUBCUT SCH (07:48)
[2022-11-15 08:00] VITALS: RESP 15; O2SAT 97
[2022-11-15] MEDS ORDERED: cyanocobalamin 500mcg tablet PO SCH (08:00)
[2022-11-15] MEDS ORDERED: atorvastatin 20mg tablet PO SCH (08:00)
[2022-11-15] MEDS: ciprofloxacin lact 400MG/200ML 200 ML IV SCH (08:01)
[2022-11-15] MEDS ORDERED: ATOR20TA66 PO (08:13)
[2022-11-15] MEDS ORDERED: LACT1CAP74 PO (08:13)
[2022-11-15] MEDS ORDERED: CYAN500T71 PO (08:13)
[2022-11-15] MEDS ORDERED: CIPR-202 PO (08:13)
[2022-11-15] MEDS ORDERED: FOLI1TAB27 PO (08:13)
[2022-11-15] MEDS ORDERED: METR-159 PO (08:13)
[2022-11-15] MEDS ORDERED: POLY17PO10 PO (08:17)
[2022-11-15 10:00] VITALS: BP 165/95; PULSE 60; RESP 20; TEMP 97.5; O2SAT 99
--- NOTE | 2022-11-15 13:00 | NUR ---
I have reviewed and agree with interventions, assessments, and documentation by Adelina Evans LVN.
== END 2022-11-15 13:46 | disposition home or self-care (01) | DRG 244 ==
LOC: ER 02:20 → ED HOLD 11:45 → EDBEDREQ 17:42 → ORTHO 4S 19:00
PROVIDERS: ADMIT Family Medicine; ATTEND Family Medicine
DX: K57.32 Diverticulitis of large intestine without perforation or abscess without bleeding (principal); D75.89 Other specified diseases of blood and blood-forming organs; K52.9 Noninfective gastroenteritis and colitis, unspecified; E03.9 Hypothyroidism, unspecified; E78.00 Pure hypercholesterolemia, unspecified; I10 Essential (primary) hypertension; F31.9 Bipolar disorder, unspecified; G89.29 Other chronic pain; N83.201 Unspecified ovarian cyst, right side; E78.5 Hyperlipidemia, unspecified; N28.1 Cyst of kidney, acquired; M54.9 Dorsalgia, unspecified; Z90.710 Acquired absence of both cervix and uterus; Z87.442 Personal history of urinary calculi; Z90.49 Acquired absence of other specified parts of digestive tract; Z88.5 Allergy status to narcotic agent; Z88.8 Allergy status to other drugs, medicaments and biological substances; Z88.1 Allergy status to other antibiotic agents; Z98.891 History of uterine scar from previous surgery
CPT/HCPCS: 36415; 74176; 76700; 76856; 76857; 80053; 80061; 81001; 81025; 83036; 83605; 83690; 83735; 84100; 84145; 84439; 84443; 85025; 85651; 86038; 86140; 87040; 87081; 93976; 99285; A4615; G0378; J0131; J0744; J1170; J1200; J1650; J2060; J2270; J2405; J2543; J3420; J3490; J7030; Q9963; Q9967

== ENCOUNTER 2024-08-18 02:47 | Emergency (ER) | payer MEDICAID, OTHER ==
[~2024-08-18] VITALS: Ht 162.6 cm; Wt 88.9 kg
[~2024-08-18 02:47] MED LIST changes: +ATOR20TA66 PO; +CYAN500T71 PO; -CYCL-1 PO; +FOLI1TAB27 PO; +LACT1CAP74 PO; -LEVO100T PO; +LEVO200T PO; -LORA10TA7 PO; +ONDA-243 PO; -ONDA4TAB12 PO; -OXYC-145 PO
--- NOTE | 2024-08-18 03:10 | Physician Documentation ---
History of Present Illness ~ Chief Complaint: Flank Pain Stated Complaint: FLANK PAIN Time Seen by MD: 03:03 [facility] Medical Doctor[facility] Source: patient Mode of Arrival: POV Exam Limitations: no limitations HPI Chief Complaint: Right flank pain Caveat: None Independent Historians: None History of Present Illness: Patient is a 54-year-old woman with a history of kidney stones who comes in complaining of severe right mid lower flank pain radiating to the right groin that began 2 hours prior to arrival. No dysuria. She does have some urgency. She has not noticed any hematuria. Patient has nausea. Patient describes the pain as constant, sharp and waxes and wanes. No alleviating or exacerbating factors. Patient denies any abdominal pain. No vomiting or diarrhea. No fever. Review of systems: All systems were reviewed and are negative except for what is indicated in the history of present illness. Past Medical History: Kidney stones, hypothyroidism Past Surgical History: Noncontributory Social History: No tobacco use, no alcohol use Medications: Reviewed as documented Nursing Notes Allergies: Reviewed as documented in Nursing Notes Medication Reconciliation Allergies: Coded Allergies: morphine (Verified Allergy, Severe, ANAPHALAXIS, 11/13/22) Bacitracin Zinc (Verified Allergy, Mild, REDNESS/ITCHING, 11/13/22) bacitracin (Verified Allergy, Mild, REDNESS/ITCHING, 11/13/22) codeine (Verified Allergy, Mild, ITCHING, 11/13/22) gramicidin D (Verified Allergy, Mild, REDNESS/ITCHING, 11/13/22) ketorolac (Verified Allergy, Mild, 11/13/22) CAUSES ITCHING neomycin sulfate (Verified Allergy, Mild, REDNESS/ITCHING, 05/23/21) polymyxin B (Verified Allergy, Mild, REDNESS/ITCHING, 05/23/21) polymyxin B sulfate (Verified Allergy, Mild, REDNESS/ITCHING, 05/23/21) cefazolin sodium (Verified Allergy, Unknown, 05/23/21) Uncoded Allergies: SURGICAL STEEL (Allergy, Unknown, 04/04/21) Scheduled Atorvastatin Calcium (Atorvastatin Calcium), 20 MG PO DAILY Cyanocobalamin* (Vitamin B-12*), 1,000 MCG PO DAILY Folic Acid* (Folic Acid*), 1 MG PO DAILY Lactobacillus Rhamnosus GG (Culturelle), 1 CAP PO DAILY Levothyroxine Sodium (Synthroid), 1 TAB PO DAILY, (Reported) Scheduled PRN Hydrocodone Bit/Acetaminophen (Hydrocodon-Acetaminophn 10-325 tablet), 1 TAB PO QID PRN PRN for pain ONDANSETRON ODT 4mg tablet (Ondansetron Odt), 1 TABLET PO Q6H PRN for nausea/vomiting, (Reported) ONDANSETRON ODT 4mg tablet (Ondansetron Odt), 1 TAB PO Q6H PRN PRN for nausea/vomiting ONDANSETRON ODT 4mg tablet (Ondansetron Odt), 1 TAB PO Q6H PRN PRN for nausea/vomiting Past Medical History Past Medical History: High Cholesterol, Hypertension, *GI/HEPATOBILIARY*, Kidney Stones, Hypothyroidism, Chronic Back Pain, Bipolar Past Surgical History: abdominal surgery, appendectomy, , hysterectomy, orthopedic surgeries Alcohol Use: Occasionally Drug Use: none, marijuana, other Lives with: Mother, Father, Family Lives In: Home Occupation: employed Review of Systems All Other Systems at this time: Reviewed and Negative ROS Patient denies any other acute symptoms other than above. All other systems are negative Physical Exam Vital Signs: RN Vital Signs have been reviewed: Yes, Temperature: 98.0, Heart Rate: 82, Respiratory Rate: 22, BP: 216/124, Pulse Oximetry: 100, Weight: 88.900 Oxygen Flow Rate: 0 Pulse Oximetry Reflects: adequate oxygenation Physical Exam General Appearance: Moderate distress HEENT: Normal OP, moist oral mucosa, PERRL, EOMI Neck: supple, normal ROM, trachea midline Pulmonary: No respiratory distress, CTA, BS equal Cardiac: RRR, no murmur, rub or gallop, GI: nondistended, soft, nontender, normal bowel sounds, no guarding, no rebound : Right CVA tenderness, no suprapubic tenderness Extremities: normal ROM, no swelling, non-tender Skin: intact, dry, warm, no rashes Neuro: AAOx3, speech is clear, no focal motor weakness Psych: normal affect, good eye contact, no apparent hallucination, normal speech Progress Results/Orders Results/Orders Orders - GUERA ESTEVES MD Ed Iv Pain Medications (6/16/25 03:04) Ct Abdomen Pelvis (08/18/24 03:55) Completed Orders - GUERA ESTEVES MD Hcg, Ur Ql (08/18/24 02:58) Cbc/Diff (08/18/24 02:58) Lipase (08/18/24 02:58) CMP (08/18/24 02:58) Ondansetron Inj. (Zofran 4mg/2ml Vial) (08/18/24 03:05) Normal Saline 1000ml (Sodium Chloride 10 (08/18/24 03:05) Fentanyl/Pf (Fentanyl 0.05 Mg/Ml Syringe (08/18/24 03:05) Ct Abdomen Pelvis (08/18/24 03:55) Fentanyl/Pf (Fentanyl 0.05 Mg/Ml Syringe (08/18/24 04:40) Ua W/Microscopic, Cult If Ind (08/18/24 04:30) Tamsulosin Capsule (Flomax Capsule) (08/18/24 05:10) Hydrocodone/Apap 10/325 ([place] 10/325mg (08/18/24 06:05) Fentanyl/Pf (Fentanyl 0.05 Mg/Ml Syringe (08/18/24 06:15) Vital Signs 08/18/24 08/18/24 08/18/24 08/18/24 02:56 03:13 03:22 03:25 Temp 98.0 98.0 Pulse 82 60 Resp 22 22 26 24 B/P (MAP) 216/124 179/122 (141) Pulse Ox 100 65 O2 Flow Rate 0 0 08/18/24 08/18/24 08/18/24 08/18/24 04:34 04:50 06:06 06:10 Resp 16 16 18 18 08/18/24 08/18/24 08/18/24 06:28 06:40 06:43 Temp 98.0 98.0 Pulse 63 63 Resp 16 16 16 B/P (MAP) 176/115 176/115 (135) Pulse Ox 96 96 O2 Flow Rate 0 Laboratory Tests Test 08/18/24 03:08 08/18/24 04:30 White Blood Count 4.7 Red Blood Count 3.81 L Hemoglobin 13.6 Hematocrit 37.9 Mean Corpuscular Volume 99.5 H Mean Corpuscular Hemoglobin 35.7 H Mean Corpuscular Hemoglobin Concent 35.8 Red Cell Distribution Width 13.7 Platelet Count 301 Mean Platelet Volume 7.3 L Neutrophils (%) (Auto) 45.6 Lymphocytes (%) (Auto) 40.8 Monocytes (%) (Auto) 10.7 Eosinophils (%) (Auto) 1.9 Basophils (%) (Auto) 1.0 Neutrophils # (Auto) 2.1 Lymphocytes # (Auto) 1.9 Monocytes # (Auto) 0.5 Eosinophils # (Auto) 0.1 Basophils # (Auto) 0.0 CBC Comment Sodium Level 143 Potassium Level 4.1 Chloride Level 108 H Carbon Dioxide Level 21.8 L Anion Gap 13 Blood Urea Nitrogen 26 H Creatinine 0.75 Estimated GFR/1.73 m2 80 BUN/Creatinine Ratio 34.7 H Glucose Level 110 H Calcium Level 9.1 Total Bilirubin 0.5 Aspartate Amino Transf (AST/SGOT) 19 Alanine Aminotransferase (ALT/SGPT) 39 Alkaline Phosphatase 102 Total Protein 7.5 Albumin 4.3 Globulin 3.2 Albumin/Globulin Ratio 1.3 Lipase 35 Chemistry Comments Urine Specimen Description Non-specified Urine Color Yellow Urine Clarity Clear Urine pH 6.0 Urine Specific [place] 1.015 Urine Protein Negative Urine Glucose (UA) Negative Urine Ketones Negative Urine Occult Blood Small Urine Nitrite Negative Urine Bilirubin Negative Urine Urobilinogen 0.2 Urine Leukocyte Esterase Negative Urine RBC 3-10 Urine WBC None seen Urine Squamous Epithelial Cells Few Urine Bacteria None seen Urine Culture Indicated Not ind Volume Urine Centrifuged 10 ml Urine HCG, Qualitative Negative Urine Comment Medical Decision Making Findings Differential diagnosis includes but is not limited to: Renal colic, ureteral colic, hydronephrosis, ureteral nephrosis, urinary tract infection, pyelonephritis Abdomen and pelvis CT scan without IV contrast, indication: Right flank pain Impression: 1. Right hydronephrosis due to 4 mm obstructing proximal right ureteral calculus. 2. Heterogeneous attenuation of the liver. Right upper quadrant ultrasound is recommended to exclude any underlying lesion. 3. 5.8 cm right adnexal cystic lesion. Pelvic ultrasound suggested for further evaluation. 4. Colonic diverticulosis without acute diverticulitis. Laboratory data independent interpretation: CBC: Unremarkable CMP: Unremarkable Lipase: 35 Urinalysis: RBC 3-10, WBC none Emergency department course/medical decision-making: Patient's history and physical is consistent with acute ureteral or renal colic. There was no evidence of acute renal insufficiency. There was no evidence of a urinary tract infection. Patient's lab work is unremarkable. Patient's CT scan shows a proximal right 4 mm ureteral stone causing some hydronephrosis. 4:45 a.m.: Patient re-evaluated. Patient's pain has returned and is again 9/10. Patient will be given another fentanyl 75 mcg IV. Patient is supposedly allergic to Toradol she gets a rash. Patient is given [place] 10 mg p.o. here. Patient will be given a prescription for [place]. Patient test results and treatment plan reviewed with her. Patient instructed to return if her symptoms worsen. Departure Time of Disposition: 06:04 Disposition: HOME / SELF CARE / HOMELESS Impression: Primary Impression: Ureteral colic Additional Impression: URETERAL LITHIASIS Condition: Stable Discharge Instructions: Renal Colic, Kidney Stones Additional Instructions: YOUR CT SCAN SHOWED A HETEROGENEOUS LIVER. WHAT THIS MEANS IS YOU NEED AN OUT PATIENT ULTRASOUND OF THE RIGHT UPPER QUADRANT AND LIVER TO RULE OUT ANY LESION. DO THIS WITH YOUR PRIMARY CARE DOCTOR. Prescriptions Hydrocodone Bit/Acetaminophen (Hydrocodon-Acetaminophn 10-325 tablet) 10mg- 325mg Tablet 1 TAB PO QID PRN PRN for pain for 5 Days, #20 TAB Prov: SANDEE SNYDER MD 08/18/24 ONDANSETRON ODT 4mg tablet (ONDANSETRON ODT) 4 Mg Tab.rapdis 1 TAB PO Q6H PRN PRN for nausea/vomiting for 4 Days, #16 TAB 0 Refills Prov: GUERA ESTEVES MD 08/18/24 ONDANSETRON ODT 4mg tablet (ONDANSETRON ODT) 4 Mg Tab.rapdis 1 TAB PO Q6H PRN PRN for nausea/vomiting for 4 Days, #16 TAB 0 Refills Prov: GUERA ESTEVES MD 08/18/24 Education Educated: Patient Educated regarding: diagnosis, treatment Signature Scribe Signature: No scribe Attestation: No scribe GUERA ESTEVES MD Aug 18, 2024 03:10
[2024-08-18] MEDS: fentaNYL/PF 50MCG/1 ML 2ML syringe IV ONE ×3 (03:13→06:28)
[2024-08-18] MEDS: ondansetron/PF 4mg/2ml inj IV ONE (03:16)
[2024-08-18] MEDS: normal saline 1000ML IV soln IVB ONE (03:18)
[2024-08-18 03:30] LABS: EOSINOPHILS # (AUTO) 0.1 X10'3 (0-0.9); EOSINOPHILS % (AUTO) 1.9 % (0-6); HEMATOCRIT 37.9 % (35.0-45.0); HEMOGLOBIN 13.6 g/dl (12.0-16.0); LYMPHOCYTES # (AUTO) 1.9 X10'3 (1.1-4.8); LYMPHOCYTES % (AUTO) 40.8 % (21-51); MEAN CORPUSCULAR HEMOGLOBIN 35.7 PG (27.0-31.0); MEAN CORPUSCULAR HGB CONC 35.8 g/dL (33.0-36.5); MEAN CORPUSCULAR VOLUME 99.5 FL (78-98); MEAN PLATELET VOLUME 7.3 FL (7.4-10.4); MONOCYTES # (AUTO) 0.5 X10'3 (0-0.9); MONOCYTES % (AUTO) 10.7 % (2-12); NEUTROPHILS # (AUTO) 2.1 X10'3 (1.8-7.7); NEUTROPHILS % (AUTO) 45.6 % (42-75); PLATELET COUNT 301 X10'3 (140-440); RED BLOOD COUNT 3.81 X10'6 (4.20-5.60); RED CELL DISTRIBUTION WIDTH 13.7 % (11.5-14.5); WHITE BLOOD COUNT 4.7 X10'3 (4.5-11.0)
[2024-08-18 03:37] LABS: ALANINE AMINOTRANSFERASE 39 U/L (12-78); ALBUMIN 4.3 G/DL (3.4-5.0); ALBUMIN/GLOBULIN RATIO 1.3 (1.1-1.5); ALKALINE PHOSPHATASE 102 IU/L (46-116); ANION GAP 13 (8-16); ASPARTATE AMINO TRANSFERASE 19 U/L (10-37); BILIRUBIN,TOTAL 0.5 MG/DL (0.1-1.0); BLOOD UREA NITROGEN 26 MG/DL (7-18); BUN/CREATININE RATIO 34.7 (10.0-20.0); CALCIUM 9.1 MG/DL (8.5-10.1); CHLORIDE 108 MMOL/L (99-107); CREATININE 0.75 MG/DL (0.40-0.90); GLUCOSE 110 MG/DL (70-104); LIPASE 35 U/L (16-77); POTASSIUM 4.1 MMOL/L (3.5-5.1); SODIUM 143 MMOL/L (135-145); TOTAL CARBON DIOXIDE 21.8 MMOL/L (24-32); TOTAL PROTEIN 7.5 G/DL (6.4-8.2); eCRCL 73 ML/MIN; eGFR 80 ML/MIN
[2024-08-18 04:46] LABS: URINE HCG NEGATIVE (NEG)
[2024-08-18 04:48] LABS: BILIRUBIN,URINE NEGATIVE (Neg); CLARITY,URINE CLEAR (Clear); COLOR,URINE YELLOW (Yellow); GLUCOSE, URINE NEGATIVE (Neg); KETONES,URINE NEGATIVE (Neg); LEUKOCYTE ESTERASE ,URINE NEGATIVE (Neg); NITRITES, URINE NEGATIVE (Neg); OCCULT BLOOD,URINE SMALL (Neg); PROTEIN,URINE NEGATIVE (Neg); UROBILINOGEN,URINE 0.2 E.U/dL (0.2-1.0)
[2024-08-18 04:51] LABS: UA COLLECTION TYPE NON-SPECIFIED
--- NOTE | 2024-08-18 04:54 | RADIOLOGY REPORT ---
Exam: CT CT ABDOMEN PELVIS History: Abdominal Pain Comparison Study: CT CT ABDOMEN PELVIS on DOS: 11/14/22 Technique: Multidetector spiral CT of the abdomen and pelvis was performed from lung bases to pubic s ymphysis. Imaging was performed without intravenous contrast. Coronal and sagittal multiplanar reform ats were obtained from the axial data set by the technologist. Radiation Dose : 1. Abdomen/Pelvis: CTDIvol 29.5 mGy, DLP 1440.4 mGy*cm. Findings: Evaluation of vasculature and solid organs is limited due to lack of intravenous contrast use. Lung Bases: Lung bases are clear. Visualized portions of the heart and pericardium are unremarkable. Liver: The liver is normal in size. Heterogeneous attenuation particularly in the right lobe. No foca l lesions. Gallbladder and Biliary Tree: The gallbladder is unremarkable. No intrahepatic or extrahepatic biliar y ductal dilatation. Spleen: Unremarkable Pancreas: The pancreas is grossly unremarkable. Adrenal Glands: Unremarkable Kidneys: Mild right hydronephrosis secondary to 4 mm obstructing proximal right ureteral calculus. Le ft kidney and ureter are unremarkable. GI tract: The stomach is grossly normal in appearance. No evidence of small bowel wall thickening or abnormal dilatation to suggest bowel obstruction. Colonic diverticulosis without acute diverticulitis . The appendix is surgically absent. Peritoneum/mesentery/retroperitoneum. No evidence of free intraperitoneal air. No ascites. No evidenc e of suspicious lymphadenopathy. Abdominal Wall: Unremarkable. Vasculature: The visualized abdominal aorta is normal in size and caliber. Evaluation of abdominal a nd pelvic vessels is limited due to lack of intravenous contrast. Urinary Bladder: Grossly unremarkable for degree of distention. Pelvic Organs: Right adnexal multi cystic mass is present measuring 5.8 cm. Possible supracervical hy sterectomy. Musculoskeletal: No aggressive focal bony lesions, acute fractures or dislocation. Grade 1 anterolist hesis at L4-L5. IMPRESSION: 1. Right hydronephrosis due to 4 mm obstructing proximal right ureteral calculus. 2. Heterogeneous attenuation of the liver. Right upper quadrant ultrasound is recommended to exclude any underlying lesion. 3. 5.8 cm right adnexal cystic lesion. Pelvic ultrasound suggested for further evaluation. 4. Colonic diverticulosis without acute diverticulitis.
[2024-08-18 04:55] LABS: BACTERIA,URINE NONE SEEN /HPF (Neg); SQUAMOUS EPITHELIAL CELL,UR FEW /LPF (FEW); WBC,URINE NONE SEEN /HPF (0-4)
[2024-08-18] MEDS: tamsulosin 0.4mg capsule PO ONE (05:18)
[2024-08-18] MEDS ORDERED: ONDA-243 PO (06:07)
[2024-08-18] MEDS ORDERED: HYDR-3973 PO (06:07)
[2024-08-18] MEDS: HYDROcodone/acetaminophen 10/325mg tab PO ONE (06:10)
[2024-08-18] MEDS ORDERED: HYDR-3972 PO (06:13)
[2024-08-18 06:43] VITALS: BP 176/115; PULSE 63; RESP 16; TEMP 98; O2SAT 96
== END 2024-08-18 06:48 | disposition home or self-care (01) ==
LOC: ER 02:48
DX: N13.2 Hydronephrosis with renal and ureteral calculous obstruction (principal); E03.9 Hypothyroidism, unspecified; E78.00 Pure hypercholesterolemia, unspecified; I10 Essential (primary) hypertension; F12.90 Cannabis use, unspecified, uncomplicated; F31.9 Bipolar disorder, unspecified; Z87.442 Personal history of urinary calculi; Z88.5 Allergy status to narcotic agent; Z88.6 Allergy status to analgesic agent; Z90.710 Acquired absence of both cervix and uterus; Z90.49 Acquired absence of other specified parts of digestive tract; Z88.8 Allergy status to other drugs, medicaments and biological substances; Z79.899 Other long term (current) drug therapy; Z72.89 Other problems related to lifestyle
CPT/HCPCS: 36415; 74176; 80053; 81001; 81025; 83690; 85025; 96361; 96374; 96375; 96376; 99285; J2405; J3010; J7030

== ENCOUNTER 2024-10-13 06:17 | Emergency (ER) | payer OTHER ==
[~2024-10-13] VITALS: Ht 162.6 cm; Wt 88.5 kg
[2024-10-13 06:28] VITALS: TEMP 97.6
--- NOTE | 2024-10-13 07:01 | Physician Documentation ---
History of Present Illness Chief Complaint: Flank Pain Stated Complaint: KIDNEY STONE Time Seen by MD: 06:41 Primary Medical Doctor: LISA Mode of Arrival: POV HPI This is a pleasant 54-year-old female with a unfortunately prior medical history of recurrent kidney stones who presents for evaluation of right lower quadrant abdominal pain that is similar in identical to previous kidney stones, however more severe in intense. Began yesterday, abruptly. The particular palliating or aggravating factors. Accompanied by chills. She states that the only difference from typical kidney pain is it is unrelenting and constant. Did not improve with the ibuprofen and Tylenol. Status post appendectomy Denies any other symptoms. No concern for tobacco, alcohol or illicit substances use Medication Reconciliation Allergies: Coded Allergies: morphine (Verified Allergy, Severe, ANAPHALAXIS, 10/13/24) Bacitracin Zinc (Verified Allergy, Mild, REDNESS/ITCHING, 10/13/24) bacitracin (Verified Allergy, Mild, REDNESS/ITCHING, 10/13/24) codeine (Verified Allergy, Mild, ITCHING, 10/13/24) gramicidin D (Verified Allergy, Mild, REDNESS/ITCHING, 10/13/24) ketorolac (Verified Allergy, Mild, 10/13/24) CAUSES ITCHING neomycin sulfate (Verified Allergy, Mild, REDNESS/ITCHING, 10/13/24) polymyxin B (Verified Allergy, Mild, REDNESS/ITCHING, 10/13/24) polymyxin B sulfate (Verified Allergy, Mild, REDNESS/ITCHING, 10/13/24) cefazolin sodium (Verified Allergy, Unknown, 10/13/24) Uncoded Allergies: SURGICAL STEEL (Allergy, Unknown, 04/04/21) Scheduled Atorvastatin Calcium (Atorvastatin Calcium), 20 MG PO DAILY Cyanocobalamin* (Vitamin B-12*), 1,000 MCG PO DAILY Folic Acid* (Folic Acid*), 1 MG PO DAILY Lactobacillus Rhamnosus GG (Culturelle), 1 CAP PO DAILY Levothyroxine Sodium (Synthroid), 1 TAB PO DAILY, (Reported) Scheduled PRN ONDANSETRON ODT 4mg tablet (Ondansetron Odt), 1 TABLET PO Q6H PRN for nausea/vomiting, (Reported) ONDANSETRON ODT 4mg tablet (Ondansetron Odt), 1 TAB PO Q6H PRN PRN for nausea/vomiting ONDANSETRON ODT 4mg tablet (Ondansetron Odt), 1 TAB PO Q6H PRN PRN for nausea/vomiting Past Medical History Past Medical History: High Cholesterol, Hypertension, *GI/HEPATOBILIARY*, Kidney Stones, Hypothyroidism, Chronic Back Pain, Bipolar Past Surgical History: abdominal surgery, appendectomy, , hysterectomy, orthopedic surgeries Alcohol Use: Occasionally Drug Use: none, marijuana, other Lives with: Mother, Father, Family Lives In: Home Occupation: employed Review of Systems ROS 10 point review of systems was performed and unless noted above in HPI is negative for acute process/complaint. Physical Exam Vital Signs: Temperature: 97.6, Source: Temporal, Heart Rate: 68, Respiratory Rate: 18, BP: 176/109, Pulse Oximetry: 99, Weight: 88.500 Oxygen Flow Rate: 0 Physical Exam GENERAL: Awake, alert, oriented, GCS 15, no apparent distress, non-toxic appearing, answers questions, follows commands appropriately. Tearful lady examined in bed 14. HEENT: Atraumatic, normocephalic, pupils equal, extraocular muscles intact, sclerae anicteric, mucus membranes moist, oropharynx is clear, no stridor. NECK: supple, full active range of motion, trachea midline, no thyromegaly, no lymphadenopathy, no JVD. CARDIOVASCULAR: regular rate/rhythm, no murmurs/gallops/rubs, Pulses are 2+ in all extremities and symmetric. Capillary refill less than 2 seconds. PULMONARY: Nonlabored, good air movement ,no respiratory distress, speaking in full sentences, clear to auscultation bilaterally, no wheezing, no ronchi, no rales, no accessory muscle use. GASTROINTESTINAL: Soft, right lower quadrant tenderness to palpation without guarding or rebound, non-distended, normal active bowel sounds, no organomegaly, no pulsatile masses, no CVA tenderness. NEUROLOGIC: Lucid with normal mental status. Normal facial symmetry. Moves all extremities symmetrically and with purpose. No truncal ataxia. Speech is fluid without evidence of dysarthria or aphasia, no focal deficits appreciated. MUSCULOSKELETAL: There is full range of motion of all extremities. There is no joint pain or joint swelling or joint erythema. There is no muscle pain or tenderness or swelling. EXTREMITIES: warm, well-perfused, no cyanosis, no clubbing, no edema, no acute deformities. Skin: warm, dry, no rashes or lesions, no jaundice, no petechiae orpurpura. No ecchymosis. PSYCHIATRIC: Normal affect, normal insight, normal concentration. Focused exam: [] Progress Results/Orders Results/Orders Orders - ANISH GERBER DO Ct Abdomen Pelvis (10/13/24 06:47) Completed Orders - ANISH GERBER DO Fentanyl/Pf (Fentanyl 0.05 Mg/Ml Syringe (10/13/24 06:50) Ondansetron Inj. (Zofran 4mg/2ml Vial) (10/13/24 06:50) Vital Signs 10/13/24 10/13/24 10/13/24 06:28 06:40 06:40 Temp 97.6 Pulse 69 68 Resp 18 18 18 B/P (MAP) 225/130 176/109 (131) Pulse Ox 100 99 O2 Flow Rate 0 Laboratory Tests Test 10/13/24 06:42 Medical Decision Making Findings Facility Status: ED Holds, [facility] process The plan was discussed with the patient, who demonstrates clear understanding of the plan and is in agreement with the plan unless otherwise noted in the chart. All questions have been answered, all concerns were addressed unless otherwise documented. I was available throughout their ED stay for frequent reassessment and questions. Differential Diagnoses (considered and possible or likely): [Differential diagnosis considered includes recurrence of kidney stones, highly unlikely acute appendicitis, also considered acute cholecystitis, pancreatitis, gastritis, PUD, diverticulitis, mesenteric ischemia, abdominal aortic aneurysm, bowel obstruction, enteritis, colitis, fecal impaction, volvulus, IBS, inflammatory bowel disease, specific food intolerance, peritonitis, perforated viscous, malignancy, UTI, abscess, and abdominal pain NOS. Pelvic source of pain was also considered including endometritis, dysmenorrhea, ovarian cyst, ovarian torsion, PID, TOA, cervicitis, vaginitis, or uterine fibroid. History, physical exam, and workup exclude many of the more serious causes listed above. ] ??Differential Diagnoses (considered and unlikely, not requiring evaluation currently): [Aortic/great vessels dissection was considered but it is unlikely based on absence of ripping, tearing, migratory chest pain, absence of syncope or focal neurologic deficits, physical examination indicating equal and symmetric pulses.] MDM Data Please see [facility] for the following: Independent Historians and external Records Review. Historian: [Patient] Independent Historians: ?[Record review] Medication Management: [Reviewed medication list] Social History and determinants: [Reviewed] Please see the body of the note for the following: Any independent interpretations of ECG, imaging studies. All vitals signs/haemodynamics, ordered tests were independently reviewed and interpreted by myself. Nursing triage complaint and vitals reviewed, additional nursing notes were reviewed as available and I agree unless otherwise noted or documented in contradiction in the chart Vital Signs: Independently reviewed Labs: Independently interpreted Imaging: Independently interpreted Old Medical Records: Independently reviewed, see HPI for relevant summary and information Pulse Oximetry: 99% interpreted as [normal on room air] by me [Director Game: [Regular Rate, Regular rhythm, no ectopy, NSR] reviewed and interpreted by me] Additionally notably showing: [Hemodynamics reviewed. The patient is not febrile, not tachycardic, no evidence of hypotension respiratory distress. CBC is normal. Chemistry is notable for very mild transaminitis and nonspecific pattern. Lipase is normal. UA is contaminated and nondiagnostic for UTI. She is not . CT shows a 3 mm stone with some hydronephrosis.] Tests considered but not ordered include: [Not applicable] Social Determinants of Health Impact: Patient was evaluated in [facility], or [facility] [place] access to healthcare due to below par ratio of patient to medical providers. [] Comorbid Conditions Impacting Present Evaluation and Care/Treatment: [History of kidney stones] Management Discussions with other Healthcare Providers: [None] Treatment and Disposition Medication Management (Given or considered): [Multiple rounds of pain control]. See EMR for details Consideration for Hospitalization/Escalation/Deescalation of Care: Admission for observation has been considered, and offered to the patient for the purposes of pain control, however patient feels that her pain is adequately controlled at the time, it is easing, she desires to go home and declines admission offer. ?ED Course:?[Eventually pain was controlled the the patient desires to go home.] ?Shared decision making:?[Patient is hemodynamically stable for discharge home with follow with their primary care provider. [ ] Specific and cautious return precautions provided and discussed with full understanding. Any incidental findi ngs were also discussed and follow up recommendations given. [] All questions answered. Patient/family were able to verbalize back return precautions. Patient/family agree to plan. Copies of imaging and laboratory studies were provided.] Code status:?FULL Please see the full Electronic Medical Record for full details of nursing documentation, medications list, other records of complete past medical history and conditions, vital signs, laboratory studies, and any radiologic study interpretations by radiologists. Portions of this note were completed using [employer] dictation software and as a result there may exist minor errors in spe lling. I have reviewed elements of past family and social history and agree as included in note. Departure Disposition: HOME / SELF CARE / HOMELESS Impression: Primary Impression: Right kidney stone Additional Impression: Renal colic Condition: Improved Discharge Instructions: Kidney Stones Referrals: NO PRIMARY CARE PROVIDER (PCP) Prescriptions Hydrocodone Bit/Acetaminophen 5/325 MG ([place] 5/325 MG) 5 Mg/325 Mg Tablet 1 TAB PO Q6H PRN for pain, #14 TAB Prov: ANISH GERBER DO 10/13/24 ONDANSETRON ODT 4mg tablet (ONDANSETRON ODT) 4 Mg Tab.rapdis 1 TAB PO Q6H PRN PRN for nausea/vomiting for 4 Days, #16 TAB 0 Refills Prov: ANISH GERBER DO 10/13/24 Education Educated: Patient Educated regarding: diagnosis, treatment, prognosis, need for follow up Signature Scribe Signature: No scribe Attestation: This note accurately reflects clinical decisions, work performed by myself, DO BUZZ Pedro NICHOLAS M DO Oct 13, 2024 07:01
[2024-10-13 07:03] LABS: LEUKOCYTE ESTERASE ,URINE NEGATIVE (Neg); NITRITES, URINE NEGATIVE (Neg); OCCULT BLOOD,URINE TRACE-INTACT (Neg)
[2024-10-13 07:04] LABS: MEAN PLATELET VOLUME 7.3 FL (7.4-10.4); RED CELL DISTRIBUTION WIDTH 12.6 % (11.5-14.5)
[2024-10-13 07:04] LABS: URINE HCG NEGATIVE (NEG)
[2024-10-13] MEDS ORDERED: iohexol 300mg/ml 100ml inj. ONE (07:06)
[2024-10-13] MEDS: ondansetron/PF 4mg/2ml inj IV ONE (07:24)
[2024-10-13 07:26] LABS: CREATININE 1.07 MG/DL (0.40-0.90); TOTAL CARBON DIOXIDE 19.7 MMOL/L (24-32); eCRCL 51 ML/MIN; eGFR 53 ML/MIN
[2024-10-13 07:26] LABS: UA COLLECTION TYPE CLN CATCH MIDSTREAM
[2024-10-13] MEDS: fentaNYL/PF 50MCG/1 ML 2ML syringe IV ONE ×2 (07:27→08:11)
[2024-10-13 07:29] LABS: MUCUS STRANDS NONE SEEN /LPF (Neg); SQUAMOUS EPITHELIAL CELL,UR MODERATE /LPF (FEW)
--- NOTE | 2024-10-13 08:52 | RADIOLOGY REPORT ---
Exam: CT CT ABDOMEN PELVIS W/ IV CONTRAST History: RLQ pain COMPARISON: CT CT ABDOMEN PELVIS on DOS: 08/18/24, CT CT ABDOMEN PELVIS on DOS: 11/14/22, US ULTRASOUND PELVIS W/ORWO DPLX on DOS: 11/13/22, US ULTRASOUND OF ABDOMEN on DOS: 11/13/22, CT CT ABDOMEN PELVIS o n DOS: 11/13/22 Technique: Multidetector spiral CT of the abdomen and pelvis was performed from lung bases to pubic s ymphysis. Intravenous contrast was administered during this examination. Portal venous imaging was o btained. Axial, coronal and sagittal multiplanar reformats were performed by the technologist on a bMenu workstation. Radiation Dose : 1. Abdomen/Pelvis: CTDIvol 27 mGy, DLP 1384 mGy*cm. Findings: Lung Bases: Cardiomegaly. Liver: Hepatic steatosis. Hepatomegaly. Gallbladder and Biliary Tree: Unremarkable Spleen: Unremarkable Pancreas: The pancreas is normal in appearance without focal lesions or abnormal enhancement. Adrenal Glands: Unremarkable Kidneys: Left kidney is unremarkable. Moderate to severe right hydroureteronephrosis with obstructi ng 0.3 cm stone in the mid right ureter. Bladder: Unremarkable Bowel: The stomach is grossly normal in appearance. Diverticulosis. Moderate colonic bowel wall thick ening. The appendix is not visualized; however, no secondary findings of acute appendicitis identifie d. Ascites: Absent Lymphadenopathy: No mesenteric, retroperitoneal or periportal lymphadenopathy. Abdominal Wall and Mesentery: Unremarkable. Vasculature: The visualized abdominal aorta is normal in size and caliber. Abdominal and pelvic vess els demonstrate normal enhancement. Pelvic Organs: Unremarkable Musculoskeletal: No aggressive focal bony lesions, acute fractures or dislocation. IMPRESSION: Moderate to severe right hydroureteronephrosis with obstructing 0.3 cm stone in the mid right ureter.
[2024-10-13] MEDS ORDERED: ONDA-243 PO (10:01)
[2024-10-13] MEDS ORDERED: HYDR-3965 PO ×2 (10:01→10:03)
[2024-10-13 10:53] VITALS: BP 169/102; PULSE 67; RESP 19; O2SAT 100
== END 2024-10-13 11:04 | disposition home or self-care (01) ==
LOC: ER 06:18
DX: N20.0 Calculus of kidney (principal); I10 Essential (primary) hypertension; E78.00 Pure hypercholesterolemia, unspecified; E03.9 Hypothyroidism, unspecified; F12.90 Cannabis use, unspecified, uncomplicated; F19.90 Other psychoactive substance use, unspecified, uncomplicated; Z88.5 Allergy status to narcotic agent; Z90.49 Acquired absence of other specified parts of digestive tract; Z90.710 Acquired absence of both cervix and uterus; Z87.442 Personal history of urinary calculi; Z79.899 Other long term (current) drug therapy; Z72.89 Other problems related to lifestyle
CPT/HCPCS: 36415; 74177; 80053; 81001; 81025; 83690; 85025; 87088; 96374; 96375; 96376; 99285; J1171; J2405; J3010; Q9967